=== PATIENT | male | born 1975 ===

== ENCOUNTER 2023-07-24 12:42 | Emergency (ER) | payer SELFPAY ==
[~2023-07-24] VITALS: Ht 167 cm; Wt 77.1 kg
[2023-07-24] MEDS ORDERED: NS IV 1000 ML 1,000 ML IV STA (12:57)
--- NOTE | 2023-07-24 12:57 | ED General ---
General Chief Complaint: Dizziness/Syncope Stated Complaint: ALCOHOL WITHDRAWAL Source of Information: Patient, EMS, Appeals Officer Exam Limitations: No Limitations History of Present Illness Date Seen by Provider: Jul 24, 2023 Time Seen by Provider: 12:44 Initial Comments 47-year-old male with past medical history of untreated hypertension and alcohol use disorder coming in via EMS due to discomfort in his chest and lightheadedness. He was climbing up a ladder at work, felt lightheaded, and called EMS. He also just feels generally shaky. He last drink last night. He typically drinks beer at nighttime and does not drink throughout the day when he is working. Denies any chest pain, shortness of breath, abdominal pain, nausea, vomiting, diarrhea, fever, chills, weakness, numbness, or any other concerns. Allergies and Home Medications Allergies Coded Allergies: No Known Drug Allergies (Unverified , 07/24/23) Patient Home Medication List Home Medication List Reviewed: Yes Review of Systems Review of Systems Constitutional: malaise EENTM: no symptoms reported Respiratory: no symptoms reported Cardiovascular: see HPI Gastrointestinal: no symptoms reported Genitourinary: no symptoms reported Musculoskeletal: no symptoms reported Skin: no symptoms reported Psychiatric/Neurological: See HPI Hematologic/Lymphatic: No Symptoms Reported Immunological/Allergic: no symptoms reported Past Mkaqaho-Ymwxky-Crppdu Hx Patient Social History Tobacco Use?: Yes Tobacco type used: Cigarettes Substance use?: No Alcohol Use?: Yes Alcohol type: Beer Past Medical History Surgeries: No Physical Exam Vital Signs Vital Signs - First Documented 07/24/23 12:45 Temp 35.1 Pulse 93 Resp 16 B/P (MAP) 174/103 (126) Pulse Ox 96 O2 Delivery Room Air Capillary Refill : Height, Weight, BMI Height: '" Weight: lbs. oz. kg; BMI Method: General Appearance: WD/WN, Anxious Eyes: Bilateral Eye Normal Inspection HEENT: PERRL/EOMI, Normal ENT Inspection, Pharynx Normal Neck: Full Range of Motion, Normal Inspection, Non Tender, Supple Respiratory: Chest Non Tender, Lungs Clear, Normal Breath Sounds, No Accessory Muscle Use, No Respiratory Distress Cardiovascular: Regular Rate, Rhythm, No Edema, Normal Peripheral Pulses Gastrointestinal: Normal Bowel Sounds, Non Tender, Soft; No Distended, No Guarding Back: Normal Inspection, No CVA Tenderness Extremity: Normal Capillary Refill, Normal Inspection, Normal Range of Motion, Non Tender, No Calf Tenderness, No Pedal Edema Neurologic/Psychiatric: Alert, No Motor/Sensory Deficits, Normal Mood/Affect Skin: Normal Color, Warm/Dry Progress/Results/Core Measures Suspected Sepsis SIRS Temperature: Pulse: Respiratory Rate: Laboratory Tests 07/24/23 12:50: White Blood Count 4.8 Blood Pressure / Mean: Laboratory Tests 07/24/23 12:50: Creatinine 1.41H, INR Comment 1.1, Platelet Count 76L, Total Bilirubin 1.6H Results/Orders Lab Results Laboratory Tests Test 07/24/23 12:50 Range/Units White Blood Count 4.8 4.3-11.0 10^3/uL Red Blood Count 4.21 L 4.30-5.52 10^6/uL Hemoglobin 14.7 13.3-17.7 g/dL Hematocrit 42 40-54 % Mean Corpuscular Volume 100 H 80-99 fL Mean Corpuscular Hemoglobin 35 H 25-34 pg Mean Corpuscular Hemoglobin Concent 35 32-36 g/dL Red Cell Distribution Width 12.0 10.0-14.5 % Platelet Count 76 L 130-400 10^3/uL Mean Platelet Volume 10.8 9.0-12.2 fL Immature Granulocyte % (Auto) 0 % Neutrophils (%) (Auto) 78 H 42-75 % Lymphocytes (%) (Auto) 11 L 12-44 % Monocytes (%) (Auto) 10 0-12 % Eosinophils (%) (Auto) 0 0-10 % Basophils (%) (Auto) 1 0-10 % Neutrophils # (Auto) 3.8 1.8-7.8 10^3/uL Lymphocytes # (Auto) 0.5 L 1.0-4.0 10^3/uL Monocytes # (Auto) 0.5 0.0-1.0 10^3/uL Eosinophils # (Auto) 0.0 0.0-0.3 10^3/uL Basophils # (Auto) 0.0 0.0-0.1 10^3/uL Immature Granulocyte # (Auto) 0.0 0.0-0.1 10^3/uL Percent Immature Platelet Fraction 9.0 H 0.0-7.6 % Prothrombin Time 14.1 12.2-14.7 SEC INR Comment 1.1 0.8-1.4 Activated Partial Thromboplast Time 27 24-35 SEC Sodium Level 137 135-145 MMOL/L Potassium Level 3.6 3.6-5.0 MMOL/L Chloride Level 97 L 98-107 MMOL/L Carbon Dioxide Level 21 21-32 MMOL/L Anion Gap 19 H 5-14 MMOL/L Blood Urea Nitrogen 11 7-18 MG/DL Creatinine 1.41 H 0.60-1.30 MG/DL Estimat Glomerular Filtration Rate 62 BUN/Creatinine Ratio 8 Glucose Level 196 H 70-105 MG/DL Calcium Level 10.2 H 8.5-10.1 MG/DL Corrected Calcium 8.5-10.1 MG/DL Magnesium Level 2.1 1.6-2.4 MG/DL Total Bilirubin 1.6 H 0.1-1.0 MG/DL Aspartate Amino Transf (AST/SGOT) 157 H 5-34 U/L Alanine Aminotransferase (ALT/SGPT) 141 H 0-55 U/L Alkaline Phosphatase 93 40-136 U/L Troponin I < 0.028 <0.028 NG/ML B-Type Natriuretic Peptide 42.7 <100.0 PG/ML Total Protein 9.1 H 6.4-8.2 GM/DL Albumin 4.8 H 3.2-4.5 GM/DL Lipase 47 8-78 U/L Smear Scan YES My Orders Orders - ELISA RODRIGUEZ MD Ekg Tracing (07/24/23 12:51) Cbc And Automated Diff (07/24/23 12:52) Magnesium (07/24/23 12:52) Chest 1 View, Ap/Pa Only (07/24/23 12:52) Ekg Tracing (07/24/23 12:52) Comprehensive Metabolic Panel (07/24/23 12:52) Protime With Inr (07/24/23 12:52) Partial Thromboplastin Time (07/24/23 12:52) O2 (07/24/23 12:52) Monitor-Rhythm Ecg Trace Only (07/24/23 12:52) Ed Iv/Invasive Line Start (07/24/23 12:52) Lipase (07/24/23 12:52) Bnp [place] (07/24/23 12:52) Troponin I [place] (07/24/23 12:52) Lorazepam Injection (Lorazepam Injection (07/24/23 13:00) Ns Iv 1000 Ml (Ns Iv 1000 Ml) (07/24/23 12:57) Aspirin Chewable Tablet (Aspirin Chewabl (07/24/23 13:00) Nitroglycerin Ointment (Nitroglycerin (07/24/23 13:00) Thiamine Tablet (Vitamin B-1 Tablet) (07/24/23 13:15) Medications Given in ED Current Medications Medications Dose Ordered Sig/Galileo Route Start Time Stop Time Status Last Admin Dose Admin Aspirin 324 mg ONCE ONCE PO 07/24/23 13:00 07/24/23 13:01 DC 07/24/23 13:27 324 MG Lorazepam 1 mg ONCE ONCE IVP 07/24/23 13:00 07/24/23 13:01 DC 07/24/23 13:27 1 MG Nitroglycerin 1 inch ONCE ONCE TOP 07/24/23 13:00 07/24/23 13:01 DC 07/24/23 13:29 1 INCH Thiamine HCl 100 mg ONCE ONCE PO 07/24/23 13:15 07/24/23 13:16 DC 07/24/23 13:29 100 MG Vital Signs/I&O 07/24/23 12:45 Temp 35.1 Pulse 93 Resp 16 B/P (MAP) 174/103 (126) Pulse Ox 96 O2 Delivery Room Air Capillary Refill : Progress Note : Progress Note 47-year-old male with above history coming in due to what he felt like was high blood pressure and just feeling jittery. ABCs were intact and vitals were stable on presentation although he is mildly hypertensive. Physical exam reassuring including a nonfocal neuro exam. EKG ordered and interpreted by me showing no acute ischemic changes and sinus rhythm. An IV was placed and basic labs were obtained and were significant for a mild ABDULLAHI, normal WBC, normal hemoglobin, elevated bilirubin around 1.6, transaminitis as well, negative troponin. His INR is normal. I suspect this is alcohol related versus could be infectious. I discussed with the patient that he should not quit drinking alcohol cold turkey as it is life-threatening. He typically drinks 6 beers a night. He voices understanding to this. He is actually from [place], his doctor is there, and he supposed be on blood pressure medicine which he is not current ly taking and he does not know the name of. He came here today for the first day ever for a new job, and is going back to [place] in a couple of days. He is otherwise denying any other acute complaints. He did receive IV Ativan on arrival, and we went ahead and give him diazepam as he is unsure if he will be able to drink tonight. I believe he is otherwise stable for discharge with outpatient follow-up. He was sent home with strict return precautions. Hepatitis panel pending, and we got the patient cell phone number to follow-up with him. ECG Initial ECG Impression Date: Jul 24, 2023 Initial ECG Impression Time: 12:57 Initial ECG Rate: 84 Initial ECG Rhythm: Normal Sinus Comment Narrow QRS, normal axis, no significant ST changes or T wave abnormalities Diagnostic Imaging Diagonstic Imaging: Xray (chest) Comments NAME: [facility]BE[facility] REC#: [id number] PT STATUS: REG ER : 1975 PHYSICIAN: ELISA ORDRIGUEZ MD ADMIT DATE: 07/24/23/ER Signed Date of Exam:07/24/23 CHEST 1 VIEW, AP/PA ONLY CHEST 1 VIEW, AP/PA ONLY Indication: Chest pain. Comparison: None available. Findings: No focal airspace disease in the visualized lungs. No pleural effusion or pneumothorax. Normal cardiomediastinal silhouette. Impression: 1. No acute cardiopulmonary process by portable radiography. Dictated by: Dictated on workstation # [id number] Dict: 07/24/23 1333 Trans: 07/24/23 1333 [facility] [id number] Interpreted by: CRISTY STONER MD Electronically signed by: CRISTY STONER MD 07/24/23 1333 Departure Impression Primary Impression: Alcohol use disorder Additional Impressions: Hyperbilirubinemia Transaminitis Disposition: 01 HOME, SELF-CARE Condition: Stable Departure-Patient Inst. Decision time for Depature: 14:20 Patient Instructions: Alcohol Use Disorder ED Add. Discharge Instructions: Your liver enzymes were elevated which could be from an infection or the alcohol you are drinking. It is life-threatening to just stop drinking alcohol if your body is used to it every day. Please follow-up with your regular doctor if you would like to stop drinking alcohol. It is less ideal, but you could also just drink slightly less alcohol every day if you would like to quit drinking it. Please follow-up with your regular doctor to get repeat liver labs in [place] to see if they improve. Belén enzimas hepticas estaban elevadas, lo que podra deberse a nyla infeccin o al alcohol que est bebiendo. Es potencialmente mortal dejar de beber alcohol si franco cuerpo est acostumbrado a l todos los riley. Por favor, ge un seguimiento con franco mdico habitual si desea dejar de beber alcohol. Es menos ideal, kennedi tambin puedes beber un poco menos de alcohol todos los riley si quieres dejar de beberlo. Por favor, ge un seguimiento con franco mdico habitual para repetir los anlisis de hgado en [place] para vinny si mejoran. Work/School Note: Work Release Form Date Seen in the Emergency Department: Jul 24, 2023 Return to Work: Jul 25, 2023 Restrictions: No Restrictions ELISA RODRIGUEZ MD Jul 24, 2023 12:57
[2023-07-24] MEDS ORDERED: ASPIRIN 81 MG CHEWABLE TABLET PO ONE (13:00)
[2023-07-24] MEDS ORDERED: NITROGLYCERIN 2% OINT 1 GM UNIT DOSE PACKET TOP ONE (13:00)
[2023-07-24 13:01] LABS: BASOPHILS % (AUTO) 1 % (0-10); EOSINOPHILS % (AUTO) 0 % (0-10); HEMATOCRIT 42 % (40-54); HEMOGLOBIN 14.7 g/dL (13.3-17.7); LYMPHOCYTES # (AUTO) 0.5 10^3/uL (1.0-4.0); LYMPHOCYTES % (AUTO) 11 % (12-44); MEAN CORPUSCULAR HEMOGLOBIN 35 pg (25-34); MEAN CORPUSCULAR HGB CONC 35 g/dL (32-36); MEAN CORPUSCULAR VOLUME 100 fL (80-99); MEAN PLATELET VOLUME 10.8 fL (9.0-12.2); MONOCYTES # (AUTO) 0.5 10^3/uL (0.0-1.0); MONOCYTES % (AUTO) 10 % (0-12); NEUTROPHILS # (AUTO) 3.8 10^3/uL (1.8-7.8); NEUTROPHILS % (AUTO) 78 % (42-75); PLATELET COUNT 76 10^3/uL (130-400); WHITE BLOOD COUNT 4.8 10^3/uL (4.3-11.0)
[2023-07-24 13:05] LABS: SMEAR SCAN COMMENT YES
[2023-07-24 13:10] LABS: ALBUMIN 4.8 GM/DL (3.2-4.5); CHLORIDE 97 MMOL/L (98-107); POTASSIUM 3.6 MMOL/L (3.6-5.0); SODIUM 137 MMOL/L (135-145)
[2023-07-24 13:11] LABS: CALCIUM 10.2 MG/DL (8.5-10.1)
[2023-07-24 13:12] LABS: GLUCOSE 196 MG/DL (70-105)
[2023-07-24 13:13] LABS: TOTAL PROTEIN 9.1 GM/DL (6.4-8.2)
[2023-07-24 13:14] LABS: BILIRUBIN,TOTAL 1.6 MG/DL (0.1-1.0); CARBON DIOXIDE 21 MMOL/L (21-32)
[2023-07-24] MEDS ORDERED: THIAMINE 100 MG (VITAMIN B-1) TAB PO ONE (13:15)
[2023-07-24 13:16] LABS: ALKALINE PHOSPHATASE 93 U/L (40-136); CREATININE SERUM 1.41 MG/DL (0.60-1.30); GFR ESTIMATED 62; INR 1.1 (0.8-1.4); PROTHROMBIN TIME PATIENT 14.1 SEC (12.2-14.7)
[2023-07-24 13:17] LABS: BUN/CREATININE RATIO 8
[2023-07-24 13:19] LABS: ALANINE AMINOTRANSFERASE 141 U/L (0-55); MAGNESIUM 2.1 MG/DL (1.6-2.4)
[2023-07-24 13:20] LABS: LIPASE 47 U/L (8-78)
--- NOTE | 2023-07-24 13:35 | Diagnostic Imaging Report ---
CHEST 1 VIEW, AP/PA ONLY Indication: Chest pain. Comparison: None available. Findings: No focal airspace disease in the visualized lungs. No pleural effusion or pneumothorax. Normal cardiomediastinal silhouette. Impression: 1. No acute cardiopulmonary process by portable radiography. Dictated by: Dictated on workstation # [id number]
[2023-07-24] MEDS ORDERED: diazePAM 5 MG TABLET PO STA (13:53)
[2023-07-24 14:10] VITALS: BP 150/95
[2023-07-24 22:17] LABS: HEPATITIS C ANTIBODY C Non-Reactive (Non-Reactive)
== END 2023-07-24 14:09 | disposition home or self-care (01) ==
LOC: ER 12:51
DX: F10.90 Alcohol use, unspecified, uncomplicated (principal); E80.6 Other disorders of bilirubin metabolism; R74.01 Elevation of levels of liver transaminase levels; F17.210 Nicotine dependence, cigarettes, uncomplicated
CPT/HCPCS: 36415; 71045; 80053; 80074; 83690; 83735; 83880; 84484; 85025; 85610; 85730; 93005; 93041; 96374